=== PATIENT | female | born 1940 | race Caucasian/White ===

== ENCOUNTER → 2018-03-13 | Outpatient (CLI) | payer MEDICARE, OTHER ==
[~2018-03-13] MED LIST: ACETAMINOPHEN325 MG PO; ASPIRIN325 PO; AUGMENTIN 875875 MG PO; BENADRYL25 MG PO; CIPRO500 MG PO; COLACE100 MG PO; COQ-10100 MG PO; ENOXAPARIN60 MG/0.1 SUBQ; FISH OIL 1,2001 EAC3 PO; FLAGYL500 M1 PO; FLAXSEED1000 MG PO; ICAPS TABLET1 EACH PO; IRON325 PO; LINZESS290 MCG PO; METAMUCIL WAFER1 PKT PO; MOBIC15 MG PO; MOM PO; MULTIPLE VITAM1 EAC4 PO; NEURONTIN 300300 M1 PO; OMEGA-31000 M1 PO; OMEPRAZOLE 20 M20 M1 PO; OSTEO BI-FLEX1 EAC2 PO; OXYBUTYNIN 5 MG5 M2 PO; PERCOCET PO; PHILLIPS' COLO1 EACH PO; PROBIOTIC1 EAC1 PO; RED YEAST RICE600 M1 PO; SINGULAIR 10 MG10 MG PO; TRAMADOL 50 MG50 MG PO; TYLENOL EXTRA500 MG PO; ULTRAM 50MG TAB50 MG PO; VALTREX 500 MG500 M1 PO; VENTOLIN HFA 1818 GM; VESICARE 5 MG TA5 MG PO; VITAMIN B-121000 MCG PO; VITAMIN D1000 UNI1 PO; VITAMIN D32000 UNIT PO; XALATAN2.5 ML OPHTHALMIC; XANAX 0.5 MG0.5 MG PO; XARELTO10 M1 PO; ZANAFLEX4 MG PO
[2018-03-13 08:20] VITALS: BP 110/55; BP 112/68; BP 115/64; BP 99/59
--- NOTE | 2018-03-13 11:14 | NUR ---
ARRIVED AMBULATORY. MADE SELF COMFORTABLE IN RECLINER. EDUCATION COMPLETED. CONSENT OBTAINED AND ORDER NOTED. PT REPORTS TAKIN 1000MG OF TYLENOL JUST PRIOR TO ARRIVAL. ORDERED TYELENOL HELD. TRANSFUSION COMPLETED AND TOLERATED WELL. DENIES QUESTIONS OR NEEDS AT DISCHARGE.
== END ==
LOC: M.INFUS 03:17
DX: K92.2 Gastrointestinal hemorrhage, unspecified (principal); D50.9 Iron deficiency anemia, unspecified

== ENCOUNTER 2018-03-21 13:39 | Emergency (ER) | payer MEDICARE, OTHER ==
[~2018-03-21] VITALS: Ht 154.9 cm; Wt 56.7 kg
[~2018-03-21 13:39] MED LIST changes: -ENOXAPARIN60 MG/0.1 SUBQ; -OMEPRAZOLE 20 M20 M1 PO; -OXYBUTYNIN 5 MG5 M2 PO; -PROBIOTIC1 EAC1 PO; -SINGULAIR 10 MG10 MG PO; -TYLENOL EXTRA500 MG PO; -ULTRAM 50MG TAB50 MG PO; -VENTOLIN HFA 1818 GM; -VITAMIN D1000 UNI1 PO
[2018-03-21] MEDS ORDERED: ULTRAM 50MG TAB50 MG PO (16:03)
[2018-03-21 16:21] VITALS: BP 104/55
[2018-03-26] MEDS ORDERED: VENTOLIN HFA 1818 GM (10:21)
[2018-03-26] MEDS ORDERED: SINGULAIR 10 MG10 MG PO (10:21)
[2018-03-26] MEDS ORDERED: OXYBUTYNIN 5 MG5 M2 PO (10:21)
[2018-03-26] MEDS ORDERED: OMEPRAZOLE 20 M20 M1 PO (10:22)
[2018-03-26] MEDS ORDERED: VITAMIN D1000 UNI1 PO (10:23)
[2018-03-26] MEDS ORDERED: PROBIOTIC1 EAC1 PO ×2 (10:23→10:24)
[2018-03-26] MEDS ORDERED: ENOXAPARIN60 MG/0.1 SUBQ (10:24)
[2018-03-26] MEDS ORDERED: TYLENOL EXTRA500 MG PO (10:24)
== END 2018-03-21 16:22 | disposition home or self-care (01) ==
LOC: M.ERS 13:39
DX: M19.042 Primary osteoarthritis, left hand (principal); M77.8 Other enthesopathies, not elsewhere classified; Z90.710 Acquired absence of both cervix and uterus; Z88.1 Allergy status to other antibiotic agents; Z88.2 Allergy status to sulfonamides; Z88.7 Allergy status to serum and vaccine; Z91.040 Latex allergy status; Z88.6 Allergy status to analgesic agent; Z88.8 Allergy status to other drugs, medicaments and biological substances

== ENCOUNTER → 2018-03-27 | Day surgery (SDC) | payer MEDICARE, OTHER ==
[~2018-03-27] MED LIST changes: +ENOXAPARIN60 MG/0.1 SUBQ; +OMEPRAZOLE 20 M20 M1 PO; +OXYBUTYNIN 5 MG5 M2 PO; +PROBIOTIC1 EAC1 PO; +SINGULAIR 10 MG10 MG PO; +TYLENOL EXTRA500 MG PO; +ULTRAM 50MG TAB50 MG PO; +VENTOLIN HFA 1818 GM; +VITAMIN D1000 UNI1 PO
[2018-03-27 11:11] LABS: HEMATOCRIT 29.5 % (37.0-47.0); HEMOGLOBIN 9.6 gm/dL (12.0-15.0); MCH 32.5 pg (26.0-34.0); MCHC 32.5 g/dL (28.0-37.0); MCV 99.9 fL (80.0-100.0); MPV 6.5 fl. (7.2-11.1); RBC 2.95 mil/uL (4.20-5.00); RDW-CV 21.9 % (10.5-14.5); WBC 2.8 thou/uL (4.0-11.0)
[2018-03-27 11:29] LABS: CALCIUM 8.9 mg/dL (8.5-10.1); POTASSIUM 3.8 mmol/L (3.5-5.1)
[2018-03-27 11:34] LABS: ALBUMIN 3.2 g/dL (3.4-5.0); TOTAL BILIRUBIN 0.3 mg/dL (<0.1-1.0); TOTAL PROTEIN 7.9 g/dL (6.4-8.2)
--- NOTE | 2018-03-27 15:18 | EKG ---
[place] [address] ELECTROCARDIOGRAM REPORT Name: TIAGO GOLDSTEIN Room: [facility]#: [id number] Admission: 03/27/18 Attend Phys: Iglesia Cardona DO Discharge: Date of : 42 Report #: [id number] THIS REPORT FOR: //name// [facility] Test Date: 2018-03-27 Test Time: 10:53:50 Pat Name: TIAGO GOLDSTEIN Department: Room: Gender: F Stitch Wheeler: DOMINIQUE : 1940 Requested By: Iglesia Cardona Order Number: [id number] Reading MD: Oren Yates Measurements Intervals [place] Rate: 74 P: 37 ND: 141 QRS: -15 QRSD: 98 T: 61 QT: 358 QTc: 398 Interpretive Statements Sinus arrhythmia Inferior infarct, old Compared to ECG 01/28/2014 17:38:41 Myocardial infarct finding now present Sinus tachycardia no longer present Electronically Signed On 03-27-2018 15:18:30 CDT by Oren Yates [email or web address] <ELECTRONICALLY SIGNED> By: Oren Yates MD, [facility] 03/27/18 1518 1053 1053 Oren Yates MD, [facility] /EPI
== END | disposition home or self-care (01) ==
LOC: M.SUR 06:54
PROVIDERS: Internal Medicine Gastroenterology
DX: K22.0 Achalasia of cardia (principal); K44.9 Diaphragmatic hernia without obstruction or gangrene; J45.909 Unspecified asthma, uncomplicated; K21.9 Gastro-esophageal reflux disease without esophagitis; I49.8 Other specified cardiac arrhythmias; F41.9 Anxiety disorder, unspecified; M19.90 Unspecified osteoarthritis, unspecified site; Z79.899 Other long term (current) drug therapy; Z91.040 Latex allergy status; Z88.2 Allergy status to sulfonamides; Z88.8 Allergy status to other drugs, medicaments and biological substances; Z86.711 Personal history of pulmonary embolism; Z79.01 Long term (current) use of anticoagulants

== ENCOUNTER → 2018-05-23 | Outpatient (CLI) | payer MEDICARE, OTHER ==
[2018-05-23 10:48] LABS: ABSOLUTE BASOPHILS 0.1 thou/uL (0.0-0.2); ABSOLUTE EOSINOPHILS 0.1 thou/uL (0.0-0.7); ABSOLUTE LYMPHOCYTES 1.3 thou/uL (0.8-5.3); ABSOLUTE MONOCYTES 0.3 thou/uL (0.0-1.2); ABSOLUTE NEUTROPHILS 2.1 thou/uL (1.6-8.1); BASOPHILS 1.6 %; EOSINOPHILS 1.6 %; HEMATOCRIT 33.8 % (37.0-47.0); HEMOGLOBIN 11.1 gm/dL (12.0-15.0); LYMPHOCYTES 33.9 %; MCH 32.3 pg (26.0-34.0); MCHC 32.9 g/dL (28.0-37.0); MCV 98.4 fL (80.0-100.0); MONOCYTES 7.5 %; NUCLEATED RBCS 0 /100WBC; PLATELET COUNT* 268 thou/uL (150-400); POLYS 55.4 %; RBC 3.44 mil/uL (4.20-5.00); RDW-CV 15.4 % (10.5-14.5); WBC 3.9 thou/uL (4.0-11.0)
[2018-05-23 11:00] LABS: ALBUMIN 3.5 g/dL (3.4-5.0); CALCIUM 9.4 mg/dL (8.5-10.1); CREATININE 1.2 mg/dL (0.6-1.3); POTASSIUM 3.7 mmol/L (3.5-5.1); TOTAL BILIRUBIN 0.3 mg/dL (<0.1-1.0); TOTAL PROTEIN 8.9 g/dL (6.4-8.2)
[2018-05-23 11:49] LABS: ESR (SEDRATE) 72 mm/hr (0-30)
== END ==
LOC: M.LAB 10:26
PROVIDERS: Internal Medicine Gastroenterology
DX: D64.9 Anemia, unspecified (principal); M19.90 Unspecified osteoarthritis, unspecified site; Z72.89 Other problems related to lifestyle

== ENCOUNTER → 2018-09-15 | Outpatient (CLI) | payer MEDICARE, OTHER | LOC: M.LAB 09:55 | DX: E04.1 Nontoxic single thyroid nodule (principal) ==

== ENCOUNTER → 2018-09-22 | Outpatient (CLI) | payer MEDICARE, OTHER ==
[~2018-09-22] MED LIST changes: +LIPITOR 20 MG T20 M1 PO; +XARELTO20 MG PO
[2018-09-22 12:17] LABS: ABSOLUTE BASOPHILS 0.1 thou/uL (0.0-0.2); ABSOLUTE EOSINOPHILS 0.1 thou/uL (0.0-0.7); ABSOLUTE LYMPHOCYTES 1.5 thou/uL (0.8-5.3); ABSOLUTE MONOCYTES 0.3 thou/uL (0.0-1.2); ABSOLUTE NEUTROPHILS 2.5 thou/uL (1.6-8.1); BASOPHILS 1.4 %; EOSINOPHILS 1.3 %; HEMATOCRIT 31.8 % (37.0-47.0); HEMOGLOBIN 10.6 gm/dL (12.0-15.0); LYMPHOCYTES 33.3 %; MCH 33.6 pg (26.0-34.0); MCHC 33.5 g/dL (28.0-37.0); MCV 100.4 fL (80.0-100.0); MONOCYTES 6.5 %; MPV 7.3 fl. (7.2-11.1); NUCLEATED RBCS 0 /100WBC; PLATELET COUNT* 277 thou/uL (150-400); POLYS 57.5 %; RBC 3.17 mil/uL (4.20-5.00); RDW-CV 13.3 % (10.5-14.5); WBC 4.4 thou/uL (4.0-11.0)
[2018-09-22 12:26] LABS: ALBUMIN 3.5 g/dL (3.4-5.0); CALCIUM 9.6 mg/dL (8.5-10.1); CREATININE 1.4 mg/dL (0.6-1.3); POTASSIUM 3.4 mmol/L (3.5-5.1)
[2018-09-22 12:52] LABS: TOTAL BILIRUBIN 0.3 mg/dL (<0.1-1.0); TOTAL PROTEIN 8.9 g/dL (6.4-8.2)
[2018-09-22 13:06] LABS: ESR (SEDRATE) 63 mm/hr (0-30)
== END ==
LOC: M.LAB 11:54
PROVIDERS: Internal Medicine Gastroenterology
DX: D64.9 Anemia, unspecified (principal)

== ENCOUNTER 2018-09-23 01:31 | Emergency (ER) | payer MEDICARE, OTHER ==
[~2018-09-23] VITALS: Ht 152.4 cm; Wt 53.5 kg
[~2018-09-23 01:31] MED LIST changes: -LIPITOR 20 MG T20 M1 PO; -XARELTO20 MG PO
[2018-09-23] MEDS ORDERED: XARELTO20 MG PO (01:55)
[2018-09-23] MEDS ORDERED: LIPITOR 20 MG T20 M1 PO (01:55)
[2018-09-23 03:12] VITALS: BP 118/59
== END 2018-09-23 03:12 | disposition home or self-care (01) ==
LOC: M.ERS 01:31
DX: S81.812A Laceration without foreign body, left lower leg, initial encounter (principal); L76.21 Postprocedural hemorrhage of skin and subcutaneous tissue following a dermatologic procedure; M19.90 Unspecified osteoarthritis, unspecified site; Z90.710 Acquired absence of both cervix and uterus; Z88.1 Allergy status to other antibiotic agents; Z88.5 Allergy status to narcotic agent; Z88.7 Allergy status to serum and vaccine; Z88.8 Allergy status to other drugs, medicaments and biological substances; Z88.2 Allergy status to sulfonamides; Z91.040 Latex allergy status; X58.XXXA Exposure to other specified factors, initial encounter; Y93.89 Activity, other specified; Y92.89 Other specified places as the place of occurrence of the external cause; Y99.8 Other external cause status

== ENCOUNTER → 2018-10-06 | Outpatient (CLI) | payer MEDICARE, OTHER ==
[~2018-10-06] MED LIST changes: +LIPITOR 20 MG T20 M1 PO; +XARELTO20 MG PO
== END ==
LOC: M.RAD 09:32
DX: R13.19 Other dysphagia (principal); K22.0 Achalasia of cardia; Z87.19 Personal history of other diseases of the digestive system

== ENCOUNTER → 2019-04-24 | Outpatient (CLI) | payer MEDICARE, OTHER | LOC: M.ULTRA 09:41 | DX: C48.2 Malignant neoplasm of peritoneum, unspecified (principal); D50.0 Iron deficiency anemia secondary to blood loss (chronic); R97.8 Other abnormal tumor markers ==

== ENCOUNTER → 2019-05-26 | Outpatient (CLI) | payer MEDICARE, OTHER ==
[2019-05-26 15:58] LABS: ABSOLUTE BASOPHILS 0.1 thou/uL (0.0-0.2); ABSOLUTE EOSINOPHILS 0.2 thou/uL (0.0-0.7); ABSOLUTE LYMPHOCYTES 1.3 thou/uL (0.8-5.3); ABSOLUTE MONOCYTES 0.3 thou/uL (0.0-1.2); ABSOLUTE NEUTROPHILS 2.1 thou/uL (1.6-8.1); BASOPHILS 1.9 %; EOSINOPHILS 3.8 %; HEMATOCRIT 26.5 % (37.0-47.0); LYMPHOCYTES 33.1 %; MCH 33.2 pg (26.0-34.0); MCHC 33.9 g/dL (28.0-37.0); MCV 97.9 fL (80.0-100.0); MONOCYTES 7.3 %; MPV 7.3 fl. (7.2-11.1); NUCLEATED RBCS 0 /100WBC; PLATELET COUNT* 289 thou/uL (150-400); POLYS 53.9 %; RDW-CV 13.1 % (10.5-14.5); WBC 3.9 thou/uL (4.0-11.0)
[2019-05-26 16:10] LABS: ALBUMIN 3.3 g/dL (3.4-5.0); CALCIUM 9.6 mg/dL (8.5-10.1); CREATININE 2.3 mg/dL (0.6-1.3); POTASSIUM 4.2 mmol/L (3.5-5.1); TOTAL BILIRUBIN 0.3 mg/dL (<0.1-1.0)
[2019-05-26 16:21] LABS: CALCIUM 9.2 mg/dL (8.5-10.1); CREATININE 2.3 mg/dL (0.6-1.3); PHOSPHORUS* 3.7 mg/dL (2.5-4.9)
[2019-05-26 17:52] LABS: ESR (SEDRATE) 115 mm/hr (0-30)
[2019-05-29 10:14] LABS: ANA INTERPRETATION Negative (()); COMPLEMENT-C4 30 mg/dL (14-44); IgA 40 mg/dL (64-422); IgG 2777 mg/dL (700-1600); IgM 47 mg/dL (26-217)
[2019-05-29 19:10] LABS: M-SPIKE 2.3 g/dL (Not Observed)
== END ==
LOC: M.LAB 14:53
PROVIDERS: Internal Medicine Nephrology
DX: N18.4 Chronic kidney disease, stage 4 (severe) (principal); Z87.19 Personal history of other diseases of the digestive system

== ENCOUNTER → 2019-08-21 | Outpatient (CLI) | payer MEDICARE, OTHER ==
[2019-08-21 13:30] LABS: ABSOLUTE LYMPHOCYTES 0.8 thou/uL (0.8-5.3); ABSOLUTE MONOCYTES 0.7 thou/uL (0.0-1.2); ABSOLUTE NEUTROPHILS 5.9 thou/uL (1.6-8.1); BASOPHILS 0.4 %; EOSINOPHILS 0.3 %; HEMOGLOBIN 8.1 gm/dL (12.0-15.0); LYMPHOCYTES 10.8 %; MCH 33.3 pg (26.0-34.0); MCHC 33.9 g/dL (28.0-37.0); MCV 98.5 fL (80.0-100.0); MPV 7.9 fl. (7.2-11.1); NUCLEATED RBCS 0 /100WBC; PLATELET COUNT* 334 thou/uL (150-400); POLYS 79.5 %; RBC 2.44 mil/uL (4.20-5.00); RDW-CV 14.7 % (10.5-14.5); WBC 7.4 thou/uL (4.0-11.0)
[2019-08-21 13:43] LABS: ALBUMIN 3.1 g/dL (3.4-5.0); CALCIUM 8.5 mg/dL (8.5-10.1); CREATININE 2.9 mg/dL (0.6-1.3); POTASSIUM 4.1 mmol/L (3.5-5.1); TOTAL BILIRUBIN 0.6 mg/dL (<0.1-1.0); TOTAL PROTEIN 8.7 g/dL (6.4-8.2)
[2019-08-21 13:50] LABS: CALCIUM 8.5 mg/dL (8.5-10.1); CREATININE 2.9 mg/dL (0.6-1.3); PHOSPHORUS* 3.4 mg/dL (2.5-4.9)
== END ==
LOC: M.LAB 12:52
PROVIDERS: Internal Medicine Nephrology
DX: N18.4 Chronic kidney disease, stage 4 (severe) (principal)

== ENCOUNTER 2019-10-27 14:39 | Inpatient (IN) | payer MEDICARE, OTHER ==
[2019-10-27 16:10] VITALS: BP 111/56
[2019-10-27 18:18] LABS: MCH 34.7 pg (26.0-34.0); MCHC 34.5 g/dL (28.0-37.0); MCV 100.6 fL (80.0-100.0); MPV 7.7 fl. (7.2-11.1); NUCLEATED RBCS 0 /100WBC; PLATELET COUNT* 253 thou/uL (150-400); RBC 1.96 mil/uL (4.20-5.00); RDW-CV 17.9 % (10.5-14.5); WBC 5.5 thou/uL (4.0-11.0)
[2019-10-27] MEDS ORDERED: ACYCLOVIR 400400 MG PO (18:21)
[2019-10-27] MEDS ORDERED: DECADRON4 MG PO (18:24)
[2019-10-27] MEDS ORDERED: ALPRAZOLAM PO (18:24)
[2019-10-27] MEDS ORDERED: ELIQUIS5 MG PO (18:25)
[2019-10-27] MEDS ORDERED: DRIZALMA SPRINK30 MG PO (18:25)
[2019-10-27] MEDS ORDERED: MONTELUKAST PO (18:26)
[2019-10-27 18:27] LABS: HEMATOCRIT 19.7 % (37.0-47.0); HEMOGLOBIN 6.8 gm/dL (12.0-15.0)
[2019-10-27] MEDS ORDERED: ONDANSETRON HCL8 MG PO (18:27)
[2019-10-27] MEDS ORDERED: PROPRANOLOL PO (18:28)
[2019-10-27] MEDS ORDERED: ZANAFLEX4 MG PO (18:29)
[2019-10-27] MEDS ORDERED: FLAX OIL1000 MG PO (18:30)
[2019-10-27] MEDS ORDERED: PRILOSEC OTC20 MG PO (18:31)
[2019-10-27] MEDS ORDERED: CULTURELLE KID1 EAC1 PO (18:31)
[2019-10-27 18:32] LABS: ALBUMIN 2.5 g/dL (3.4-5.0); CALCIUM 8.3 mg/dL (8.5-10.1); CREATININE 2.8 mg/dL (0.6-1.3); POTASSIUM 4.8 mmol/L (3.5-5.1); TOTAL BILIRUBIN 0.6 mg/dL (<0.1-1.0); TOTAL PROTEIN 7.4 g/dL (6.4-8.2)
[2019-10-27 18:48] LABS: ABSOLUTE BASOPHILS 0.1 thou/uL (0.0-0.2); ABSOLUTE EOSINOPHILS 0.1 thou/uL (0.0-0.7); ABSOLUTE LYMPHOCYTES 0.5 thou/uL (0.8-5.3); ABSOLUTE MONOCYTES 0.2 thou/uL (0.0-1.2); ABSOLUTE NEUTROPHILS 4.8 thou/uL (1.6-8.1); ANISOCYTOSIS 1+; PLATELET ESTIMATE ADEQUATE
[2019-10-27 21:56] VITALS: BP 101/47; BP 114/59; BP 99/53
[2019-10-28 04:08] VITALS: BP 119/56
[2019-10-28 04:13] LABS: HEMATOCRIT 24.4 % (37.0-47.0); HEMOGLOBIN 8.3 gm/dL (12.0-15.0); MCH 32.5 pg (26.0-34.0); MPV 7.3 fl. (7.2-11.1); RBC 2.55 mil/uL (4.20-5.00); RDW-CV 20.3 % (10.5-14.5); WBC 3.6 thou/uL (4.0-11.0)
[2019-10-28 04:26] LABS: MCV 95.5 fL (80.0-100.0)
[2019-10-28 04:33] LABS: ALBUMIN 2.3 g/dL (3.4-5.0); CALCIUM 8.3 mg/dL (8.5-10.1); CREATININE 2.7 mg/dL (0.6-1.3); MAGNESIUM 1.8 mg/dL (1.8-2.4); POTASSIUM 4.3 mmol/L (3.5-5.1); TOTAL BILIRUBIN 0.6 mg/dL (<0.1-1.0); TOTAL PROTEIN 6.9 g/dL (6.4-8.2)
[2019-10-28 05:54] LABS: URINE BILIRUBIN NEGATIVE (Negative); URINE BLOOD 1+ (Negative); URINE CLARITY CLEAR; URINE COLOR YELLOW; URINE GLUCOSE-RANDOM NEGATIVE (Negative); URINE KETONES NEGATIVE (Negative); URINE LEUKOCYTES-REFLEX 1+ (Negative); URINE NITRITE-REFLEX NEGATIVE (Negative); URINE PROTEIN NEGATIVE (Negative); URINE SPECIFIC GRAVITY <= 1.005 (1.005-1.030); URINE UROBILINOGEN 0.2 E.U./dl (0.2-1.0)
[2019-10-28 06:01] LABS: RENAL EPITHELIAL CELLS 0-3 Few /LPF (None Seen)
[2019-10-28 06:02] LABS: CASTS None Seen /LPF (None Seen); CRYSTALS None Seen /LPF (None Seen); MUCUS 0-3 Light strn/LPF (None Seen); SQUAMOUS 4-10 Moderate /LPF (0-3); URINE RBC 3-10 Few /HPF (0-2); URINE WBC-REFLEX 6-15 Few /HPF (0-5)
[2019-10-28 08:00] VITALS: BP 150/79
[2019-10-28 16:00] VITALS: BP 134/69
--- NOTE | 2019-10-28 16:44 | EKG ---
[place] [address] ELECTROCARDIOGRAM REPORT Name: TIAGO GOLDSTEIN Room: [address] ADM IN M.R.#: [id number] Admission: 10/27/19 Attend Phys: Luis Ellison Discharge: Date of : 42 Date of Service: 10/28/19 0937 Report #: [id number] THIS REPORT FOR: //name// [facility] Test Date: 2019-10-28 Test Time: 09:37:47 Pat Name: TIAGO GOLDSTEIN Department: Room: [address] Gender: F Telecom Coordinator: : 1940 Requested By: Vashti Jackson Order Number: [id number] Foster MD: Shahbaz Vickers Measurements Intervals [place] Rate: 65 P: -20 CA: 156 QRS: -2 QRSD: 94 T: 55 QT: 391 QTc: 407 Interpretive Statements Sinus rhythm Compared to ECG 03/27/2018 10:53:50 Sinus arrhythmia no longer present Myocardial infarct finding no longer present Electronically Signed On 10-28-2019 16:43:45 CDT by Shahbaz Vickers [email or web address] <ELECTRONICALLY SIGNED> By: Shahbaz Vickers MD, [facility] 10/28/19 1643 0937 0937 Shahbaz Vickers MD, [facility] /EPI
--- NOTE | 2019-10-28 17:28 | CON ---
[facility] [address] [place] [address] CONSULTATION Name: TIAGO GOLDSTEIN Room: [address] IN M.R.#: [id number] Admission: 10/27/19 Attend Phys: Luis Rodriguez, Discharge: Date of : 42 Report #: [id number] THIS REPORT FOR: //name// cc: Joshua Milner MD, Dean L. MD ~ THIS REPORT FOR: //name// CC: Joshua Rodriguez DICTATED BY: Vashti Jackson [facility] DATE OF SERVICE: 10/28/2019 Please note at the time of this dictation, the patient was seen and physically examined by myself. REASON FOR CONSULTATION: Diarrhea, some abdominal discomfort and acute anemia. HISTORY OF PRESENT ILLNESS: This is a 79-year-old female who was a direct admit from Dr. Villaseñor for a complaint that she was anemic in his office and she had been having a 3-day history of diarrhea, which she states was very dark in consistency and somewhat pasty. The patient has been taking Xarelto with a history of PEs back in 2018. Her last dose of Xarelto was on Saturday evening. She has been taking 2 Aleve b.i.d. for some time as well on top of her anticoagulant. The patient is currently undergoing chemotherapy for her melanoma in her blood, which she was noted to have back in the summer and is followed by Dr. Villaseñor. 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 Botox was applied. She had a 7 cm hiatal hernia and Yoav erosions. She also underwent a colonoscopy in 03/2018 that showed diverticulosis in the sigmoid colon and internal hemorrhoids. The patient denies any nausea, no vomiting, no fever or chills. She has not been on any antibiotics and has not been exposed to anyone that has traveled or has been sick that she has been aware of. Her appetite has been good, but since she has been undergoing chemo, it has not been as good as usual and currently on a hiatus. Weight has dropped as well due to the chemo. ALLERGIES: INCLUDE CIPRO, OXYCONTIN, ASPIRIN, CELEXA, CLINDAMYCIN, LATEX, TAXOL, SULFA, TETANUS TOXOID, NASACORT, EFFEXOR, AND CALCITONIN SALMON. MEDICATIONS FROM HOME: Include Neurontin, ICaps multivitamin, Xarelto, with last dose being on Saturday evening, Lipitor, vitamin D, Zanaflex, [place] [address] CONSULTATION Name: TIAGO GOLDSTEIN Room: [address] IN [facility]#: [id number] Admission: 10/27/19 Attend Phys: Luis Rodriguez, Discharge: Date of : 42 Report #: [id number] Colace, oxybutynin, Ventolin, omeprazole, probiotic and Tylenol. PAST MEDICAL HISTORY: Diagnosed last summer with melanoma in her blood, arthritis, history of a PE in 2018. PAST SURGICAL HISTORY: Knee surgery, hysterectomy, tonsillectomy, D and C, and fundoplication for her hiatal hernia last year. FAMILY HISTORY: Noncontributory. SOCIAL HISTORY: Denies any alcohol, tobacco or illegal drug use. REVIEW OF SYSTEMS: Twelve-point review of systems is essentially negative except what is mentioned in the HPI. PHYSICAL EXAMINATION: VITAL SIGNS: Temperature 37.2, pulse 61, respirations 20, blood pressure 119/56. HEART: Regular rate and rhythm. LUNGS: Clear. ABDOMEN: Soft, positive bowel sounds in all 4 quadrants, especially in the lower quadrants. LABORATORY DATA: Hemoglobin on admission was 6.8, she got a unit of blood, she is up to 8.3, white count is 3.6 and platelets 237. BUN was 44, is down to 41 with a creatinine of 2.7, GFR is 17. LFTs are completely normal. No imaging has been performed. IMPRESSION: 1. Acute anemia. 2. Melanotic stool. 3. Abdominal pain. 4. Nonsteroidal anti-inflammatory drug use, 2 Aleve b.i.d. 5. Anticoagulant therapy, Xarelto, history of pulmonary embolism. 6. Personal history of melanoma in the blood. PLAN: 1. EGD today with Dr. Nelson. 2. Protonix drip. 3. Xarelto is on hold. 4. Further recommendations to be made once the procedure has been performed. [address] [place] [address] CONSULTATION Name: TIAGO GOLDSTEIN Room: [address] IN M.R.#: [id number] Admission: 10/27/19 Attend Phys: Luis Rodriguez, Discharge: Date of : 42 Report #: [id number] Thank you for allowing us to participate in this patient's care. Please do not hesitate to call with any questions in regard to this consult. <ELECTRONICALLY SIGNED> By: Galo Nelson MD 10/28/19 1728 0907 0937Galo Nelson MD /nt
[2019-10-28 20:00] VITALS: BP 105/59; BP 146/95
[2019-10-29] VITALS: BP 115/59
[2019-10-29 04:00] VITALS: BP 145/69
[2019-10-29 05:43] LABS: HEMATOCRIT 24.9 % (37.0-47.0); HEMOGLOBIN 8.4 gm/dL (12.0-15.0); MCH 32.3 pg (26.0-34.0); MCHC 33.6 g/dL (28.0-37.0); MPV 7.2 fl. (7.2-11.1); RBC 2.59 mil/uL (4.20-5.00); RDW-CV 20.1 % (10.5-14.5); WBC 3.5 thou/uL (4.0-11.0)
[2019-10-29 06:00] LABS: ALBUMIN 2.4 g/dL (3.4-5.0); CREATININE 2.4 mg/dL (0.6-1.3); MAGNESIUM 1.6 mg/dL (1.8-2.4)
[2019-10-29 08:30] VITALS: BP 127/66
[2019-10-29 12:15] VITALS: BP 118/60
[2019-10-29 15:12] LABS: CALCIUM 8.2 mg/dL (8.5-10.1); CREATININE 2.3 mg/dL (0.6-1.3); MAGNESIUM 1.5 mg/dL (1.8-2.4)
[2019-10-29 15:52] VITALS: BP 134/61
[2019-10-29] MEDS ORDERED: ACETAMINOPHEN325 MG PO (18:52)
[2019-10-29 18:57] VITALS: BP 134/61
--- NOTE | 2019-10-30 17:46 | CON ---
[address] [address] CONSULTATION Name: TIAGO GOLDSTEIN Room: [address] IN M.R.#: [id number] Admission: 10/27/19 Attend Phys: Luis Rodriguez, Discharge: 10/29/19 Date of : 42 Report #: [id number] THIS REPORT FOR: //name// cc: Joshua Milner MD, Dean L. MD ~ THIS REPORT FOR: //name// CC: Joshua Rodriguez CONSULTING PHYSICIAN: Dr. Rodriguez REASON FOR CONSULT: Chronic kidney disease. HISTORY OF PRESENT ILLNESS: A 79-year-old female who is seen in our office by Dr. Pritchett for chronic kidney disease stage [address] Villaseñor for multiple myeloma, was admitted directly because of a 3-day history of diarrhea and weakness and concern for possible C. diff. Her diarrhea is somewhat improving. Her stools are starting to become more formed. She did have stool for C. diff sent off this morning and that result is currently pending. Dr. Martinez from Oncology did come and see her. She did have some anemia with hemoglobin of less than 7 and did receive transfusion yesterday. She currently is feeling well, is anxious to go home. Currently, she has no complaints. REVIEW OF SYSTEMS: Constitutional, psych, heme, eyes, ENT, respiratory, cardiac, GI, , endocrine, all negative except as documented above. PAST MEDICAL HISTORY: Chronic kidney disease stage 4, history of multiple myeloma, peritoneal carcinomatosis initially diagnosed in 2007, history of PE, glaucoma. SOCIAL HISTORY: No tobacco. MEDICATIONS: Reviewed. FAMILY HISTORY: Mother had hypertension. PHYSICAL EXAMINATION: VITAL SIGNS: Blood pressure is 134/69, pulse 69, respirations 16, temperature 36.3. GENERAL: No acute distress. EYES: Open. EARS: Externally normal. NECK: Supple. CARDIOVASCULAR: Regular rate. LUNGS: [place] [address] CONSULTATION Name: TIAGO GOLDSTEIN Room: [address]#: [id number] Admission: 10/27/19 Attend Phys: Luis Rodriguez, Discharge: 10/29/19 Date of : 42 Report #: [id number] ABDOMEN: Soft. MUSCULOSKELETAL: Nontender. PSYCHIATRIC: Awake, alert. LABORATORY AND DIAGNOSTIC DATA: White cell count 3.6, hemoglobin 8.3, platelets 237. Sodium 140, potassium 4.3, chloride 108, bicarbonate 22, BUN 41, creatinine 2.7, calcium 8.3, magnesium 1.8, albumin 2.3. ASSESSMENT: 1. Chronic kidney disease stage 4. Creatinine is essentially at baseline. She has been running 2.7-2.9 on recent checks as an outpatient. She is followed by Dr. Pritchett as an outpatient. 2. IgG multiple myeloma. 3. History of peritoneal carcinomatosis diagnosed initially in 2007. In 04/2019, CT was unrevealing. 4. History of pulmonary embolism. 5. Hypoalbuminemia. Albumin 2.3. 6. Anemia, status post 1 unit of packed red blood cell. PLAN: 1. UA is noted. Urine culture is pending. 2. Currently on IV fluids. 3. She is status post 1 unit of packed red blood cells. 4. Renal function is stable at present time. Stool has been sent off for C. diff. Dr. Martinez has seen her. She is currently on outpatient chemotherapy. She has been seen by GI and did undergo an EGD. She is not on outpatient EBENEZER therapy. I am not sure if this has ever been tried in the past, but this is something she can review with the oncologist to see if it would be something that may help her become less transfusion dependent. She is currently receiving transfusions about every 5 weeks. We will follow along with you. Thank you for requesting my opinion in the care and management of this patient. <ELECTRONICALLY SIGNED> By: Rubio Carlisle MD 10/30/19 1746 1713 2031Atrent Carlisle MD /nt
== END 2019-10-29 19:00 | disposition home or self-care (01) | DRG 371 ==
LOC: M.3W 14:39 → M.2W 15:28 → M.3W 15:28 → M.2W 19:55
PROVIDERS: ADMIT Family Medicine
PROC: 0DJ08ZZ Inspection of Upper Intestinal Tract, Via Natural or Artificial Opening Endoscopic (ICD-10-PCS; principal; 2019-10-28)
DX: A04.9 Bacterial intestinal infection, unspecified (principal); E43 Unspecified severe protein-calorie malnutrition; N17.0 Acute kidney failure with tubular necrosis; C49.9 Malignant neoplasm of connective and soft tissue, unspecified; N18.4 Chronic kidney disease, stage 4 (severe); K57.30 Diverticulosis of large intestine without perforation or abscess without bleeding; M19.90 Unspecified osteoarthritis, unspecified site; K44.9 Diaphragmatic hernia without obstruction or gangrene; R13.10 Dysphagia, unspecified; E83.42 Hypomagnesemia; D50.9 Iron deficiency anemia, unspecified; Z79.01 Long term (current) use of anticoagulants; Z86.711 Personal history of pulmonary embolism; Z92.21 Personal history of antineoplastic chemotherapy; Z79.899 Other long term (current) drug therapy; Z88.1 Allergy status to other antibiotic agents; Z88.6 Allergy status to analgesic agent; Z91.040 Latex allergy status; Z90.710 Acquired absence of both cervix and uterus; Z79.1 Long term (current) use of non-steroidal anti-inflammatories (NSAID); Z82.49 Family history of ischemic heart disease and other diseases of the circulatory system; Z88.7 Allergy status to serum and vaccine